=== PATIENT | male | born 1950 | race Caucasian/White ===

== ENCOUNTER 2017-04-09 10:11 | Inpatient (IN) | payer OTHER ==
[~2017-04-09] VITALS: Ht 175.3 cm; Wt 80.7 kg
[~2017-04-09 10:11] MED LIST: AMLODIPINE BESY10 MG ORAL; ASPIR 8181 MG ORAL; BENAZEPRIL HCL40 MG ORAL; CALCIUM ACETATE PO; HYDRALAZINE HCL50 MG ORAL; QUETIAPINE FUMA25 MG ORAL; RENVELA800 MG ORAL; SENSIPAR30 MG ORAL; SIMVASTATIN20 MG ORAL; TOPROL XL50 MG ORAL
[2017-04-09 10:30] VITALS: BP 93/53
[2017-04-09] MEDS ORDERED: Metoprolol 5mg/5ml Inj IVP ONE (10:45)
--- NOTE | 2017-04-09 10:49 | Emergency Room Report ---
History of Present Illness General Chief Complaint: Dyspnea/Respdistress Source: Patient, EMS Present Illness HPI 58-year-old male presents to ED for evaluation of shortness of breath. Patient was at doctor's office today when he was complaining of shortness of breath. EKG showed atrial fibrillation with RVR. Patient has no prior history of atrial fibrillation. Patient denies any chest pain. Patient notes cough which is chronic. Patient gets dialysis-last dialysis was on Sunday. Denies fevers or chills. No other aggravating or relieving factors. Denies any other associated symptoms Allergies: Coded Allergies: ACYCLOVIR (Unverified Allergy, Unknown, 02/15/15) Patient History Past Medical History: DM, CVA/TIA, renal disease, dialysis Past Surgical History: none Pertinent Family History: none Social History: Denies: alcohol use, drug use, smoking Immunizations: UTD Reviewed Nursing Documentation: PMH: Agreed, PSxH: Agreed Nursing Documentation-PMH Hx Hypertension: Yes - PVD Hx Diabetes: Yes Hx Cancer: No Hx Gastrointestinal Problems: No Hx Dialysis: Yes - T,TH,S Hx Neurological Problems: No Hx Cerebrovascular Accident: Yes Review of Systems All Other Systems: negative except mentioned in HPI Physical Exam Vital Signs Date Time Temp Pulse Resp B/P Pulse Ox O2 Delivery O2 Flow Rate FiO2 04/09/17 10:06 110 18 90/60 96 Nasal Cannula 2.0 Sp02 EP Interpretation: reviewed, normal General Appearance: no apparent distress, alert, GCS 15, non-toxic Head: normocephalic, atraumatic Eyes: bilateral eye PERRL, bilateral eye normal inspection ENT: hearing grossly normal, normal pharynx, no angioedema, normal voice Neck: full range of motion, supple/symm/no masses Respiratory: chest non-tender, decreased breath sounds, crackles Cardiovascular #1: no edema, tachycardia Cardiovascular #2: 2+ carotid (R), 2+ carotid (L), 2+ radial (R), 2+ radial (L) , 2+ dorsalis pedis (R), 2+ dorsalis pedis (L) Gastrointestinal: normal bowel sounds, non tender, soft, non-distended, no guarding, no rebound Rectal: deferred Genitourinary: normal inspection, no CVA tenderness Musculoskeletal: back normal, gait/station normal, normal range of motion, non- tender Neurologic: alert, oriented x3, responsive, motor strength/tone normal, sensory intact, speech normal Psychiatric: judgement/insight normal, memory normal, mood/affect normal, no suicidal/homicidal ideation Reflexes: 3+ bicep (R), 3+ bicep (L), 3+ tricep (R), 3+ tricep (L), 3+ knee (R) , 3+ knee (L) Skin: normal color, no rash, warm/dry, well hydrated Lymphatic: no adenopathy Procedures Critical Care Time Critical Care Time i. I feel this is a highly complex case requiring extensive working including EKG/Rhythm strip, Xray/CT/US, Blood/urine lab work, repeat exams while in ED, and administration of strong opiates/narcotics for pain control, admission to hospital or close patient follow up. Total time: 30 min bedside evaluation and treatment excludes procedures (EKG). Reason for critical care: afib with RVR Possible complications: hypotension, hypertension, PA, shock, arrhythmias, metabolic acidosis, end organ damage, respiratory failure. Interventions: labs, EKG, CXR, lopressor Course: patient came with SOB. EKG shows afib with RVR - no prior history. patient given lopressor with cardioversion achieved Consultations: nursing staff, EMS, family Performed by: Dr Muñoz Tolerated well condition = serious j. because of unstable vital signs this patient had a condition that could potentially threaten life or limb. I feel this is a critical patient who required my full attention while patient was considered critical. Total Critical Care Time excluding procedures was greater than 35 minutes Medical Decision Making Diagnostic Impression: Primary Impression: Atrial fibrillation with rapid ventricular response Additional Impressions: CKD (chronic kidney disease) Qualified Codes: N18.9 - Chronic kidney disease, unspecified ESRD (end stage renal disease) on dialysis ER Course Hospital Course 66-year-old M presents ED complaining of SOB, tachycardic Differential diagnoses include: PA/unstable angina, contusion, muscle strain, PTX, rib fracture, pneumonia, Clinical course Patient placed on stretcher. on playground official which shows A. fib with RVR. lopressor given with cardioversion. After initial history and physical I ordered labs, EKG, chest x-ray labs reviewed- no leukocytosis, hemoglobin/hematocrit ok, BUN/Cr elevated, trop negative, K ok, BNP markedly elevated EKG - afib with RVR, no acute ischemic changes interpreted by me Chest x-ray- cardiomegaly. ? atelectasis vs infiltrate Patient initially hypotensive. improved with Lopressor and small fluid bolus Case discussed with Dr. Allan and he agreed to accept the patient to his service for further care and support I. I feel this is a highly complex case requiring extensive working including EKG/Rhythm strip, Xray/CT/US, Blood/urine lab work, repeat exams while in ED, and administration of strong opiates/narcotics for pain control, admission to hospital or close patient follow up. Diagnosis - afib with RVR, CKD, ESRD admitted to telemetry in serious condition Labs Test 04/09/17 10:25 White Blood Count 4.2 K/UL (4.8-10.8) Red Blood Count 3.10 M/UL (4.70-6.10) Hemoglobin 9.2 G/DL (14.2-18.0) Hematocrit 30.5 % (42.0-52.0) Mean Corpuscular Volume 98 FL (80-99) Mean Corpuscular Hemoglobin 29.6 PG (27.0-31.0) Mean Corpuscular Hemoglobin Concent 30.1 G/DL (32.0-36.0) Red Cell Distribution Width 19.4 % (11.6-14.8) Platelet Count 139 K/UL (150-450) Mean Platelet Volume 6.4 FL (6.5-10.1) Neutrophils (%) (Auto) 75.0 % (45.0-75.0) Lymphocytes (%) (Auto) 13.3 % (20.0-45.0) Monocytes (%) (Auto) 9.2 % (1.0-10.0) Eosinophils (%) (Auto) 1.9 % (0.0-3.0) Basophils (%) (Auto) 0.7 % (0.0-2.0) Sodium Level 138 mEQ/L (135-145) Potassium Level 5.6 mEQ/L (3.4-4.9) Chloride Level 96 mEQ/L (98-107) Carbon Dioxide Level 21 mEQ/L (20-30) Anion Gap 21 (5-15) Blood Urea Nitrogen 77 mg/dL (7-23) Creatinine 9.6 mg/dL (0.7-1.2) Estimat Glomerular Filtration Rate 5.5 mL/min (>60) Glucose Level 172 mg/dL (74-106) Calcium Level 10.1 mg/dL (8.6-10.2) Total Bilirubin 0.4 mg/dL (0.0-1.2) Aspartate Amino Transf (AST/SGOT) 16 U/L (5-40) Alanine Aminotransferase (ALT/SGPT) 29 U/L (3-41) Alkaline Phosphatase 71 U/L (40-129) Total Creatine Kinase 92 U/L (26-140) Creatine Kinase MB 7.3 ng/mL (< 6.7) Creatine Kinase MB Relative Index 7.9 Troponin I < 0.30 ng/mL (<=0.30) Pro-B-Type Natriuretic Peptide > 15295 pg/mL (0-125) Total Protein 6.9 g/dL (6.6-8.7) Albumin 3.8 g/dL (3.5-5.2) Globulin 3.1 g/dL Albumin/Globulin Ratio 1.2 (1.0-2.7) EKG Diagnostic Results Rate: tachycardiac Rhythm: other - afib with RVR ST Segments: no acute changes ASA given to the pt in ED: No Rhythm Strip Diag. Results EP Interpretation: yes Rhythm: NSR, no PVC's, no ectopy Chest X-Ray Diagnostic Results Chest X-Ray Ordered: Yes # of Views/Limited/Complete: 1 View Interpretation: no pneumothorax Indication: Shortness of Breath Impression: Other - cardiomegaly. left mid and lower infiltrate vs edema Date Electronically Signed: Apr 09, 2017 Time Electronically Signed: 14:12 Last Vital Signs Date Time Temp Pulse Resp B/P Pulse Ox O2 Delivery O2 Flow Rate FiO2 04/09/17 10:29 110 18 Nasal Cannula 2.0 04/09/17 10:06 90/60 96 Status: improved Disposition: ADMITTED INPATIENT Condition: Serious Referrals: [facility],REFERRING (PCP) DESHAUN MUÑOZ M.D. Apr 09, 2017 10:49
[2017-04-09 10:59] LABS: BASOPHILS % (AUTO) 0.7 % (0.0-2.0); EOSINOPHILS % (AUTO) 1.9 % (0.0-3.0); LYMPHOCYTES % (AUTO) 13.3 % (20.0-45.0); MEAN CORPUSCULAR HEMOGLOBIN 29.6 PG (27.0-31.0); MEAN CORPUSCULAR HGB CONC 30.1 G/DL (32.0-36.0); MEAN CORPUSCULAR VOLUME 98 FL (80-99); MEAN PLATELET VOLUME 6.4 FL (6.5-10.1); MONOCYTES % (AUTO) 9.2 % (1.0-10.0); PLATELET COUNT 139 K/UL (150-450); RED CELL DISTRIBUTION WIDTH 19.4 % (11.6-14.8); WHITE BLOOD COUNT 4.2 K/UL (4.8-10.8)
[2017-04-09 11:00] VITALS: BP 89/63
[2017-04-09 11:30] LABS: TROPONIN I < 0.30 ng/mL (<=0.30)
[2017-04-09] MEDS ORDERED: Levalbuterol Inh UD 1.25mg/0.5ml HHN ONE (11:45)
[2017-04-09 11:55] LABS: ALANINE AMINOTRANSFERASE 29 U/L (3-41); ALBUMIN/GLOBULIN RATIO 1.2 (1.0-2.7); ANION GAP 21 (5-15); ASPARTATE AMINO TRANSFERASE 16 U/L (5-40); CALCIUM 10.1 mg/dL (8.6-10.2); CARBON DIOXIDE 21 mEQ/L (20-30); CHLORIDE 96 mEQ/L (98-107); CKMB 7.3 ng/mL (< 6.7); CREATININE 9.6 mg/dL (0.7-1.2); GLOMERULAR FILTRATION RATE 5.5 mL/min (>60); POTASSIUM 5.6 mEQ/L (3.4-4.9); SODIUM 138 mEQ/L (135-145); TOTAL PROTEIN 6.9 g/dL (6.6-8.7)
[2017-04-09 12:10] VITALS: BP 102/63
[2017-04-09] MEDS ORDERED: VITAMIN D1000 UNI1 ORAL ×2 (12:10)
[2017-04-09] MEDS ORDERED: SENSIPAR30 MG ORAL (12:10)
[2017-04-09] MEDS ORDERED: ATORVASTATIN CA40 MG ORAL (12:10)
[2017-04-09] MEDS ORDERED: RENA-VITE TABL0.8 M1 PO (12:10)
[2017-04-09] MEDS ORDERED: VELPHORO500 MG PO (12:10)
[2017-04-09] MEDS ORDERED: RENVELA2.4 GM ORAL (12:10)
[2017-04-09] MEDS ORDERED: LOSARTAN POTASS50 MG ORAL (12:10)
[2017-04-09] MEDS ORDERED: PLAVIX75 MG ORAL (12:10)
[2017-04-09] MEDS ORDERED: COREG25 MG ORAL (12:10)
[2017-04-09] MEDS ORDERED: Sodium Polystyrene Sulfonate 15gm Powder ORAL ONE (12:15)
[2017-04-09] MEDS ORDERED: ZEMPLAR2 MCG/1 ML IV (12:16)
[2017-04-09] MEDS ORDERED: VENOFER100 MG/5 M IV (12:16)
[2017-04-09] MEDS ORDERED: ARANESP100 MCG/0. IV (12:16)
[2017-04-09] MEDS ORDERED: Renvela 2400 mg pkt ORAL SCH (13:00)
[2017-04-09] MEDS ORDERED: Metoprolol 5mg/5ml Inj IVPB ONE (13:45)
--- NOTE | 2017-04-09 13:47 | Diagnostic Imaging Report ---
Indication: Shortness of breath Technique: One view of the chest Comparison: 02/15/2015 Findings: Patchy interstitial and alveolar infiltrate is seen the left mid and lower lung. The heart is enlarged. There is right perihilar atelectasis or scarring. No definite effusions. Impression: Cardiomegaly. Left mid and lower lung infiltrate versus edema
[2017-04-09] MEDS ORDERED: Digoxin 0.5mg/2ml Inj IVP ONE ×2 (14:00→16:30)
[2017-04-09] MEDS ORDERED: HydrALAZINE 50mg tab ORAL SCH (14:00)
[2017-04-09] MEDS: Heparin 5000 units/ml inj SUBQ SCH ×2 (14:45→22:00)
[2017-04-09] MEDS ORDERED: Metoprolol Tartrate 5 MG in NS 55 ML IVPB SCH (15:30)
[2017-04-09 15:36] VITALS: BP 98/56
[2017-04-09] MEDS: Vitamin D 1000 IU Tab ORAL SCH (18:14)
[2017-04-09] MEDS: Renvela 800mg Pkt ORAL SCH (20:15)
[2017-04-09 20:16] VITALS: BP 146/85
[2017-04-09] MEDS: Atorvastatin 80mg tab ORAL SCH (20:52)
[2017-04-09] MEDS ORDERED: Carvedilol 25mg Tab ORAL SCH (21:00)
[2017-04-09] MEDS ORDERED: Epogen (for ESRD on dialysis) SUBQ SCH (21:00)
--- NOTE | 2017-04-09 23:00 | Consultation ---
DATE OF CONSULTATION: 04/09/2017 NEPHROLOGY CONSULTATION CONSULTING PHYSICIAN: Dutch Ruiz M.D. REFERRING PHYSICIAN: Lc Allan M.D. REASON FOR CONSULTATION: End-stage renal disease, congestive heart failure, and atrial fibrillation. HISTORY OF PRESENT ILLNESS: The patient has dialysis on Sunday, , Sunday, and today is Sunday. He presents with increasing shortness of breath and found to have atrial fibrillation with rapid ventricular response in the emergency room and mild congestive heart failure on chest x-ray. He says he usually gains 2 to 3 kilos and its removed on dialysis. He has a history of hypertension, usually blood pressure 130 to 160 systolic, but lately it has been down to the 90s intermittently. He has a history of coronary artery disease, stenting, and questionable small NE in the past. He also had apparently a history of small asymptomatic CVA in the past. He recently had a fall at home and did not tell his that he had ecchymosis on his left hip, but no hip pain. The patient has adult onset diabetes prior on p.o. medicines, but now controlled without medication. ALLERGIES: Acyclovir and Valium. PAST SURGICAL HISTORY: Left upper arm AV fistula. MEDICATIONS: Plavix 75 mg daily, Sevelamer 4 tablets t.i.d., losartan 100 mg daily, atorvastatin 80 mg daily, Norvasc 10 mg daily, Cinacalcet recently stopped, Coreg 25 mg twice a day, Nephro-Digna 1 daily, Venofer, Aranesp, Zemplar for dialysis protocol, vitamin D3 1000 units daily, and aspirin 81 mg daily. HABITS: He is a nonsmoker and nondrinker. SOCIAL HISTORY: He was born in [place] and immigrated to this country. 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 REVIEW OF SYSTEMS: HEAD EYES, EARS, NOSE, AND THROAT: Vision and hearing is good. Endocrine: Diabetes as above. No known thyroid disease. PULMONARY: No asthma or TB, but he has home oxygen, has chronic CHF. GASTROINTESTINAL: No GI bleeding or ulcers. GENITOURINARY: No dysuria or hematuria, makes small amounts of urine. NEUROLOGIC: History of CVA without any definite symptoms of paralysis. MUSCULOSKELETAL: No history of chronic joint pain. PHYSICAL EXAMINATION: GENERAL: The patient is alert, moderately obese man, in no acute distress. He looks weak. VITAL SIGNS: Temperature 97.8, pulse 123, respirations 25, and blood pressure 102/63. HEAD, EYES, EARS, NOSE, AND THROAT: Sclerae are nonicteric. Ocular motions intact in all directions. Oral mucosa is moist. NECK: No adenopathy. LUNGS: Clear. HEART: Rhythm is atrial fibrillation. S1-S2, I hear no murmur. ABDOMEN: Soft without organomegaly or masses. EXTREMITIES: Show 1+ ankle edema. NEUROLOGIC: He is alert and oriented. Cranial nerves are intact. PERTINENT LABS: Potassium 5.6, BUN 77, creatinine 9.6, glucose 172. BNP greater than 70,000. Troponin less than 0.3. Hemoglobin 9.2. IMPRESSION: 1. End-stage renal disease. 2. Congestive heart failure, acute on chronic. 3. Atrial fibrillation with rapid ventricular response. 4. Obesity. 5. Diabetes. PLAN: The patient with serial dialysis, will be seen by Cardiology for his atrial fibrillation. We will watch him closely in view of his comorbidities. Thank you so much Dr. Dutch Ruiz. Dutch Ruiz M.D. DR: RAMESH JOB#: [id number] CC:
[2017-04-09 23:59] VITALS: BP 127/76
[2017-04-10] VITALS (46 sets, daily range): BP systolic 85–151; BP diastolic 34–95
[2017-04-10] MEDS ORDERED: Amiodarone 900 MG in D5W 500ml 482 ML IV SCH (00:45)
[2017-04-10] MEDS ORDERED: Amiodarone 150mg/ml 3ml Amp ONE ×3 (00:53→01:00)
--- NOTE | 2017-04-10 05:30 | Consultation ---
DATE OF CONSULTATION: 04/09/2017 CARDIOLOGY CONSULTATION REQUESTING PHYSICIAN: Lc Allan M.D. REASON FOR CONSULTATION: Rapid atrial fibrillation and acute on chronic congestive heart failure. HISTORY OF PRESENT ILLNESS: This 66-year-old male has a history of hypertensive and ischemic cardiomyopathy. He is on hemodialysis three times a week. His last session was two days ago. Today, he developed worsening shortness of breath. He came to the emergency room and was noted to have rapid atrial fibrillation. He also had clinical as well as radiographic evidence of congestive heart failure. The patient has a history of high blood pressure. Usually, it is in the range of 150 systolic. Over the past few days, it has been low in the 90 to 100 systolic range. He has not had any fevers or chills. PAST MEDICAL HISTORY: Coronary artery disease, history of myocardial infarction, cerebrovascular disease with history of cerebrovascular accident and no residual deficits, hypertensive heart disease, end-stage renal disease, type 2 diabetes mellitus, left upper extremity AV fistula, hyperlipidemia, and anemia of chronic kidney disease. MEDICATIONS: Prior to admission, reviewed and reconciled. ALLERGIES: Include acyclovir and diazepam. SOCIAL HISTORY: No smoking, alcohol, or substance abuse. FAMILY HISTORY: Noncontributory. REVIEW OF SYSTEMS: No fevers or chills. Diabetes now managed with oral therapy. He is on anti-lipid drugs. No history of thyroid disorder. No history of retinopathy. He is on dialysis three days a week. He has not had any change in bowel habits. There is no history of prostate cancer. He produces minimal amount of urine. He has had a prior stroke with no residual deficit. He is on home oxygen. He has chronic heart failure. Most recent echocardiogram revealed preserved left ventricular ejection fraction. PHYSICAL EXAMINATION: GENERAL: He is moderately obese, presently just completing hemodialysis with one liter of fluid removal, and he remains in significant shortness of breath. He is unable to sit. He must sit upright to catch his breath. VITAL SIGNS: Afebrile, blood pressure 98/60, pulse 118, and respirations 24. HEENT: Normocephalic and atraumatic. Conjunctivae pink. Sclerae anicteric. Oropharynx clear. NECK: Supple. Jugular venous pressure greater than 10. LUNGS: Diminished breath sounds with few rales bilaterally. CARDIAC: Irregularly irregular rhythm. Rapid rate. Normal S1 and S2 with no appreciable murmur. ABDOMEN: Soft and nontender. EXTREMITIES: With 1 to 2+ pitting edema bilaterally. There is no mottling or cyanosis. LABORATORY AND DIAGNOSTIC DATA: BUN 77 and creatinine 9.6. Troponin negative. Pro-natriuretic peptide over 70,000. Potassium predialysis was 5.6. EKG, atrial fibrillation, rapid ventricular response, and nonspecific ST-T wave changes. IMPRESSION: 1. Acute on chronic diastolic congestive heart failure. 2. New onset atrial fibrillation with rapid ventricular response. 3. End-stage renal disease. 4. Hypertensive heart disease now with low range blood pressure. 5. Ischemic cardiomyopathy with chronic stable angina and prior history of myocardial infarction. 6. Cerebrovascular disease. PLAN: We will transfer to the ICU and initiate IV amiodarone as well as anticoagulation for cardioembolic prophylaxis. The patient did not respond to IV metoprolol and digitalis. His low blood pressure is the limiting factor for additional beta-shana or calcium shana therapy. He may require further fluid removal. His condition remains serious with guarded prognosis. Ramírez Hughes M.D. DR: Cassidy JOB#: [id number] CC:
[2017-04-10] MEDS ORDERED: Heparin Sod 1000 units/ml 10ml IV SCH (06:00)
[2017-04-10] MEDS: Vitamin D 1000 IU Tab ORAL SCH ×2 (08:14→17:38)
[2017-04-10] MEDS: Carvedilol 25mg Tab ORAL SCH ×2 (08:15→21:18)
[2017-04-10] MEDS: Renvela 800mg Pkt ORAL SCH ×4 (08:15→21:17)
[2017-04-10] MEDS: Eliquis 2.5mg tablet ORAL SCH ×2 (08:15→21:18)
[2017-04-10] MEDS ORDERED: Sensipar 30mg Tab ORAL SCH (09:00)
[2017-04-10] MEDS ORDERED: Aspirin EC 81mg tab ORAL SCH (09:00)
[2017-04-10] MEDS ORDERED: Nephrovite tab ORAL SCH (09:00)
[2017-04-10] MEDS ORDERED: Azithromycin 250mg tab ORAL SCH (11:00)
--- NOTE | 2017-04-10 12:33 | History & Physical ---
History and Physical History & Physicial dict OK for transfer to [facility] Apr 10, 2017 12:33
--- NOTE | 2017-04-10 18:15 | History and Physical Report ---
DATE OF ADMISSION: 04/09/2017 HISTORY OF PRESENT ILLNESS: The patient is a 66-year-old man who is dialysis dependent. He was sent by paramedics to the emergency department on the day of admission because of increasing shortness of breath and new onset of rapid atrial fibrillation. Branch Services Manager saw him and recommended that he be admitted. The patient states that he was short of breath for a day. He was not aware of any change in his rhythm. Since admission he was dialyzed and feels much better. He is now in intensive care on amiodarone drip and his heart rate is better. He does not have a history of arrhythmia. PAST MEDICAL HISTORY: Coronary disease, myocardial infarction, stroke, hypertensive heart disease, end-stage renal disease due to diabetes, left upper extremity AV fistula, hyperlipidemia, chronic anemia due renal failure, hypertensive and ischemic cardiomyopathy. MEDICATIONS: Reviewed and reconciled. ALLERGIES: Acyclovir and diazepam. SOCIAL HISTORY: He does not drink or smoke. Does not use illegal drugs. REVIEW OF SYSTEMS: He has edema. He has no chest pain or palpitations. He has less shortness of breath. There is no nausea, vomiting, or diarrhea. He does cough and produce and dark tinged sputum for the past several days. He had a stroke in the past with no residual deficits. He is on home oxygen. PHYSICAL EXAMINATION: GENERAL: The patient is obese, sitting up at the bedside. VITAL SIGNS: Blood pressure is 120/70, heart rate 108. There is no fever. He is not in distress. HEENT: Head is normocephalic. NECK: No jugular vein distention. CHEST: Few rhonchi. CARDIAC: Rhythm is irregular. ABDOMEN: Soft and nontender. EXTREMITIES: Have 2+ edema. LABORATORY AND DIAGNOSTIC DATA: Reviewed. Troponin is negative. BNP is elevated. Chest x-ray shows basilar infiltrates versus pulmonary edema. IMPRESSION: 1. New onset rapid atrial fibrillation. 2. Acute on chronic diastolic heart failure with pulmonary edema. 3. End-stage renal disease. 4. Hypertensive and ischemic cardiomyopathy. 5. Diabetes. PLAN: The patient is improving on current therapy including amiodarone drip and anticoagulants. We will check a sputum culture and had antibiotics. He is in stable condition for transfer to his contracted hospital if necessary. Lc Allan M.D. DR: Benito JOB#: [id number] CC: Brian Ludwig M.D. ; Fax#: [phone] Allan M.D.; Fax#: [phone]
--- NOTE | 2017-04-10 18:44 | Nephrology Progress Note ---
Assessment/Plan Problem List: (1) CHF (congestive heart failure), NYHA class II (2) ESRD (end stage renal disease) on dialysis (3) Atrial fibrillation with rapid ventricular response Plan stable for [facility] Subjective Constitutional: Reports: weakness HEENT: Reports: no symptoms Genitourinary: Reports: no symptoms Neurologic/Psychiatric: Reports: no symptoms Subjective mild sob, seen on initiation of dialysis . no angina Objective Objective Last 24 Hour Vital Signs Date Time Temp Pulse Resp B/P Pulse Ox O2 Delivery O2 Flow Rate FiO2 04/10/17 18:00 108 33 97/57 27 Nasal Cannula 3.0 04/10/17 17:30 100 33 126/68 27 Nasal Cannula 3.0 04/10/17 17:00 98 24 85/64 93 Nasal Cannula 3.0 04/10/17 16:30 98 24 114/54 95 Nasal Cannula 3.0 04/10/17 16:00 92 04/10/17 16:00 98.1 101 24 104/57 95 Nasal Cannula 3.0 04/10/17 15:30 106 24 111/95 95 Nasal Cannula 3.0 04/10/17 15:00 96 24 105/69 95 Nasal Cannula 3.0 04/10/17 14:30 98 24 93/58 95 Nasal Cannula 3.0 04/10/17 14:00 98 24 93/58 95 Nasal Cannula 3.0 04/10/17 13:30 88 23 92/52 93 Nasal Cannula 3.0 04/10/17 13:00 94 23 92/64 93 Nasal Cannula 3.0 04/10/17 12:30 98 23 115/76 92 Nasal Cannula 3.0 04/10/17 12:00 98.0 108 23 120/75 94 Nasal Cannula 3.0 04/10/17 12:00 101 04/10/17 11:30 104 23 108/54 95 Nasal Cannula 3.0 04/10/17 11:00 105 24 108/54 95 Nasal Cannula 3.0 04/10/17 11:00 Nasal Cannula 3.0 04/10/17 11:00 95 Nasal Cannula 3.0 32 04/10/17 10:30 97 24 123/69 96 Nasal Cannula 3.0 04/10/17 10:00 105 24 112/85 93 Nasal Cannula 3.0 04/10/17 09:30 105 22 151/70 93 Nasal Cannula 3.0 04/10/17 09:00 97 21 111/66 95 Nasal Cannula 3.0 04/10/17 08:30 102 24 113/76 92 Nasal Cannula 3.0 04/10/17 08:15 94 122/76 04/10/17 08:00 98.3 100 23 122/76 95 Nasal Cannula 3.0 04/10/17 08:00 97 04/10/17 07:30 96 25 117/71 92 Nasal Cannula 3.0 04/10/17 07:00 94 21 128/59 95 Nasal Cannula 2.0 04/10/17 06:30 95 21 106/58 95 Nasal Cannula 2.0 04/10/17 06:00 97 23 103/62 95 Nasal Cannula 2.0 04/10/17 05:30 94 21 105/60 95 Nasal Cannula 2.0 04/10/17 05:00 95 22 102/53 95 Nasal Cannula 2.0 04/10/17 04:30 95 26 104/53 95 Nasal Cannula 2.0 04/10/17 04:00 102 04/10/17 04:00 98.0 102 23 116/59 94 Nasal Cannula 2.0 04/10/17 03:30 103 23 119/74 94 Venturi Mask 55 04/10/17 03:00 107 24 104/59 94 Venturi Mask 55 04/10/17 02:30 103 26 112/41 95 Venturi Mask 55 04/10/17 02:00 103 32 109/52 94 Venturi Mask 55 04/10/17 01:30 110 33 98/62 93 Venturi Mask 55 04/10/17 01:00 115 33 92/60 91 Venturi Mask 55 04/10/17 00:30 114 30 98/57 93 Venturi Mask 55 04/10/17 00:23 Venturi Mask 14.0 55 04/10/17 00:22 94 Venturi Mask 14.0 55 04/10/17 00:00 113 04/10/17 00:00 98.2 113 28 107/34 86 Venturi Mask 55 04/09/17 23:59 98.4 110 19 127/76 94 Nasal Cannula 04/09/17 22:43 Nasal Cannula 2.0 04/09/17 20:16 98.6 90 20 146/85 99 Room Air 04/09/17 20:00 112 Intake and Output 04/09/17 04/10/17 19:00 07:00 Intake Total 320 ml 299.85 ml Output Total 1000 ml Balance 320 ml -700.15 ml Intake Oral 120 ml 0 ml IV Total 200 ml 299.85 ml Hemodialysis UF 1000 ml # Voids 1 # Bowel Movements 2 Laboratory Tests 04/09/17 21:30: Hepatitis A IgM Antibody [Pending], Hepatitis B Surface Antigen [Pending], Hepatitis B Core IgM Antibody [Pending], Hepatitis C Antibody [Pending] Height (Feet): 5 Height (Inches): 9.00 Weight (Pounds): 178 General Appearance: no apparent distress, obese EENT: PERRL/EOMI Cardiovascular: regularly irregular, tachycardia Respiratory/Chest: lungs clear, decreased breath sounds Abdomen: non tender, soft Extremities: moderate edema Neurologic: color maker dyer II-XII grossly normal SHAWNEE CHANCE Apr 10, 2017 18:44
[2017-04-10] MEDS ORDERED: Renvela 2400 mg pkt ORAL SCH (20:00)
[2017-04-10] MEDS ORDERED: Amiodarone 200mg tab ORAL SCH (21:00)
[2017-04-10] MEDS: Atorvastatin 80mg tab ORAL SCH (21:18)
--- NOTE | 2017-04-11 01:00 | Progress Note ---
DATE: 04/10/2017 CARDIOLOGY PROGRESS NOTE/CRITICAL CARE NOTE: SUBJECTIVE: The patient was transferred to the intensive care unit last night after he continued to have rapid heart rate and significant shortness of breath with the following dialysis. He remains in rapid atrial fibrillation. He had been given several doses of metoprolol and digoxin. His blood pressure was tenuous as such I initiated IV amiodarone in the ICU. The patient remains in atrial fibrillation, however rate is better controlled. His blood pressure parameters have improved somewhat as well, now in the range of 100 to 120 systolic. The patient is still short of breath. His condition remains critical. OBJECTIVE: VITAL SIGNS: Blood pressure is ranging from 85/64 to 114/54, heart rate 90 to 115 and irregular, respiratory rate 24 to 33, and the patient is afebrile. LUNGS: Diminished breath sounds. Scattered rales. HEART: Irregularly irregular rhythm. Normal S1 and S2 with no appreciable murmur. ABDOMEN: Soft. EXTREMITIES: 1 to 2+ dependent edema of BLE's. LABORATORY DATA: No new laboratories today. IMPRESSION: 1. Atrial fibrillation, new onset with rapid ventricular response. 2. End-stage renal disease. 3. Acute on chronic diastolic congestive heart failure. 4. Acute myocardial ischemia. 5. Hypertensive and ischemic cardiomyopathy. PLAN: Additional dialysis with ultrafiltration. Continue amiodarone drip x 24 hours and transition to oral therapy. Continue full anticoagulation for cardioembolic prophylaxis. Antimicrobials and respiratory hygiene. May transfer to contracted facility following hemodialysis today, if he remains off pressors. Ramírez Hughes M.D. DR: Edgar JOB#: [id number] CC: DOTTY
--- NOTE | 2017-04-11 20:14 | Discharge Summary ---
Discharge Summary Hospital Course Date of Admission Apr 09, 2017 at 11:30 Date of Discharge Apr 10, 2017 at 22:50 Admitting Diagnosis RAPID A-FIB WITH RVR,CHF HPI Ramesh Tillman is a 66 year old male who was admitted on Apr 09, 2017 at 11:30 for Rapid Atrial Fibrillation With Rapid Ventricular Hospital Course [id number] Discharge Discharge Disposition Patient was discharged to [facility] Discharge Diagnoses: Tiffani Walker NP Apr 11, 2017 20:14
--- NOTE | 2017-04-12 01:15 | Discharge Summary 2 SIG ---
DATE OF ADMISSION: 04/09/2017 DATE OF DISCHARGE: 04/10/2017 CONSULTANTS: 1. Ramírez Hughes M.D. 2. Dutch Ruiz M.D. BRIEF HOSPITAL COURSE: The patient is a 66-year-old male, who is dialysis dependent, and was sent by paramedics to ED because of increasing shortness of breath and a new onset of rapid atrial fibrillation. He was seen by the software configuration manager and recommended to be admitted. The patient was short of breath. On arrival to ED, he was on atrial fibrillation with rapid ventricular response and was initially hypotensive. Chest x-ray with lung infiltrates versus edema. He was admitted to ICU and was on amiodarone drip. He underwent hemodialysis and was eventually transferred to [facility]. FINAL DIAGNOSES: 1. New onset of rapid atrial fibrillation. 2. Acute on chronic diastolic heart failure with pulmonary edema. 3. End-stage renal disease, on hemodialysis. 4. Hypertensive and ischemic cardiomyopathy. 5. Diabetes. Lc Allan M.D. I have been assigned to dictate discharge summary on this account and I was not involved in the patient's management. Tiffani Walker N.P. DR: ROBBIE JOB#: [id number] CC:
== END 2017-04-10 22:50 | disposition short-term general hospital (02) | DRG 308 ==
LOC: EDBD 10:11 → EDBEDREQ 10:26 → EMR 10:29 → 2E 11:30 → EDBEDREQ 11:46 → 2E 13:48 → ICU 04-10 00:10
PROC: 5A1D60Z (ICD-10-PCS; principal; 2017-04-09)
DX: I48.91 Unspecified atrial fibrillation (principal); N18.6 End stage renal disease; I50.33 Acute on chronic diastolic (congestive) heart failure; E11.22 Type 2 diabetes mellitus with diabetic chronic kidney disease; I95.9 Hypotension, unspecified; I11.0 Hypertensive heart disease with heart failure; I13.2 Hypertensive heart and chronic kidney disease with heart failure and with stage 5 chronic kidney disease, or end stage renal disease; Z99.2 Dependence on renal dialysis; I25.5 Ischemic cardiomyopathy; E78.5 Hyperlipidemia, unspecified; I25.10 Atherosclerotic heart disease of native coronary artery without angina pectoris; I25.2 Old myocardial infarction; Z86.73 Personal history of transient ischemic attack (TIA), and cerebral infarction without residual deficits; Z88.8 Allergy status to other drugs, medicaments and biological substances; Z79.02 Long term (current) use of antithrombotics/antiplatelets; E66.9 Obesity, unspecified
CPT/HCPCS: 36415; 71010; 80053; 82550; 82553; 83880; 84484; 85025; 86705; 86709; 86803; 87340; 93005; 94640; 94760